=== PATIENT | male | born 1985 | race Caucasian/White ===

== ENCOUNTER 2023-02-07 10:19 | Emergency (ER) | payer OTHER ==
[~2023-02-07] VITALS: Wt 72.6 kg
== END 2023-02-07 13:08 | disposition home or self-care (01) ==
LOC: ED 10:19
DX: S30.0XXA Contusion of lower back and pelvis, initial encounter (principal); Z87.891 Personal history of nicotine dependence; V80.010A Animal-rider injured by fall from or being thrown from horse in noncollision accident, initial encounter; Y93.89 Activity, other specified; Y92.89 Other specified places as the place of occurrence of the external cause; Y99.8 Other external cause status

== ENCOUNTER 2024-07-29 12:11 | Emergency (ER) | payer SELFPAY ==
[~2024-07-29] VITALS: Ht 165.1 cm; Wt 70.3 kg
[2024-07-29] MEDS ORDERED: SODIUM CHLORIDE 0.9% 1,000 ML IV ONE ×2 (12:50→13:35)
[2024-07-29] MEDS ORDERED: IOHEXOL 300 MG/ML 100 ML VIAL IV ONE (12:50)
[2024-07-29] MEDS ORDERED: Pantoprazole Sodium 40 MG VIAL IV ONE (12:50)
[2024-07-29] MEDS ORDERED: Metoclopramide Hydrochloride 10 MG/2 ML VIAL IV ONE (12:50)
[2024-07-29 13:01] LABS: BASO % 0.4 % (0.0-1.0); HEMATOCRIT 32.4 % (42.0-52.0); MEAN CELL VOLUME 96.1 fl (80.0-94.0); MEAN CORPUSCULAR HGB 34.7 pg (27.0-31.0); MEAN CORPUSCULAR HGB CONC 36.1 g/dl (33.0-37.0); MEAN PLATELET VOLUME 9.6 fl (9.6-12.3); MONO # 0.5 10*3/uL (0.1-1.0); MONO % 4.9 % (3.0-9.0); NEUT # 9.5 10*3/uL (2.3-7.9); NEUT % 88.4 % (47.0-73.0); PLATELET COUNT AUTOMATED 264 10*3/uL (130-400); RED BLOOD COUNT 3.37 10*6/uL (4.50-5.90); RED CELL DISTRI WIDTH 11.9 % (0-14.5); WHITE BLOOD COUNT 10.8 10*3/uL (4.8-10.8)
[2024-07-29 13:23] LABS: ALKALINE PHOSPHATASE 41 U/L (46-116); BUN 26 mg/dl (9-23); CHLORIDE 97 mmol/L (98-107); LIPASE 56 U/L (12-53); POTASSIUM 3.4 mmol/L (3.4-5.1); SGPT/ALT 86 U/L (5-49)
[2024-07-29] MEDS ORDERED: Ondansetron Hydrochloride 4 MG/2 ML VIAL IV ONE (15:00)
== END 2024-07-29 19:34 | disposition short-term general hospital (02) ==
LOC: ED 12:11
PROVIDERS: Nurse Practitioner Family
DX: K92.0 Hematemesis (principal)